=== PATIENT | female | born 1965 | race African-American/Black ===

== ENCOUNTER 2021-11-03 13:15 | Emergency (ER) | payer OTHER, MEDICARE ==
[2021-11-03] MEDS ORDERED: Acetaminophen 500 MG TAB ONE (14:32)
== END 2021-11-03 14:45 | disposition home or self-care (01) ==
LOC: NAV ERS 13:15
DX: S93.502A Unspecified sprain of left great toe, initial encounter (principal); K21.9 Gastro-esophageal reflux disease without esophagitis; E11.9 Type 2 diabetes mellitus without complications; E78.00 Pure hypercholesterolemia, unspecified; I10 Essential (primary) hypertension; Z87.891 Personal history of nicotine dependence; W19.XXXA Unspecified fall, initial encounter

== ENCOUNTER 2023-11-07 09:41 | Emergency (ER) | payer MEDICARE ==
[2023-11-07 10:33] LABS: Bilirubin Negative (Negative); Blood, Urine Trace (Negative); Clarity Clear (Clear); Glucose, Urine (Dipstick) Negative (Negative); Ketone, Urine Negative (Negative); Leukocyte Negative (Negative); Nitrite Negative (Negative); Protein, Urine (Dipstick) Negative (Neg-Trace)
[2023-11-07 10:42] LABS: Bacteria/HPF None Seen HPF (None Seen); CAUTI Indications for Culture Dysuria,urgency,freq; RBC/HPF 0-3 HPF (0-3); Squamous Epithelial 0-3 HPF (0-3); WBC/HPF None Seen HPF (0-3)
[2023-11-07 10:43] LABS: Urine Culture Reflex No No
== END 2023-11-07 10:55 | disposition home or self-care (01) ==
LOC: NAV ERS 09:41
DX: M76.62 Achilles tendinitis, left leg (principal); R30.0 Dysuria; I10 Essential (primary) hypertension; E11.9 Type 2 diabetes mellitus without complications; E78.00 Pure hypercholesterolemia, unspecified; K21.9 Gastro-esophageal reflux disease without esophagitis; Z87.891 Personal history of nicotine dependence; Z79.899 Other long term (current) drug therapy
CPT/HCPCS: 81001

== ENCOUNTER 2023-12-30 10:02 | Emergency (ER) | payer MEDICARE, SELFPAY | END 2023-12-30 10:26 | disposition home or self-care (01) | LOC: NAV ERS 10:02 | DX: H60.91 Unspecified otitis externa, right ear (principal); H60.11 Cellulitis of right external ear; R03.0 Elevated blood-pressure reading, without diagnosis of hypertension; E11.9 Type 2 diabetes mellitus without complications; I10 Essential (primary) hypertension; Z87.891 Personal history of nicotine dependence | CPT/HCPCS: 99282 ==

== ENCOUNTER 2024-07-28 10:13 | Emergency (ER) | payer MEDICARE, OTHER | END 2024-07-28 11:40 | disposition home or self-care (01) | LOC: NAV ERS 10:13 | DX: J06.9 Acute upper respiratory infection, unspecified (principal); B30.9 Viral conjunctivitis, unspecified; J45.909 Unspecified asthma, uncomplicated; E11.9 Type 2 diabetes mellitus without complications; I10 Essential (primary) hypertension; Z87.891 Personal history of nicotine dependence | CPT/HCPCS: 99283 ==